=== PATIENT | male | born 1995 | race Caucasian/White ===

== ENCOUNTER 2024-03-16 06:09 | Emergency (ER) | payer OTHER, SELFPAY ==
--- NOTE | 2024-03-16 | ECG_ITS ---
Test Reason : DIZZINESS Blood Pressure : / mmHG Vent. Rate : 051 BPM Atrial Rate : 051 BPM P-R Int : 140 ms QRS Dur : 096 ms QT Int : 430 ms P-R-T Axes : 034 019 038 degrees QTc Int : 396 ms Sinus bradycardia with sinus arrhythmia Otherwise normal ECG No previous ECGs available Referred By: Generic ED Physician Electronically Signed By:RONAN CASTLE MD
[2024-03-16 06:14] VITALS: BP 163/90; PULSE 65; O2SAT 100
[2024-03-16 06:19] VITALS: BP 115/67; PULSE 51; RESP 18; TEMP 36.6; O2SAT 100; BMI 26.2
[2024-03-16 06:39] LABS: MANUAL DIFF FLAG NO
[2024-03-16 06:46] LABS: Basophils Absolute Auto 0.1 X10*3/uL (0.0-0.2); Basophils Percent Auto 1.1 % (0-2); Eosinophils Absolute Auto 0.2 X10*3/uL (0.0-0.4); Eosinophils Percent Auto 3.3 % (0-4); Hematocrit 37.8 % (42.0-52.0); Hemoglobin 13.4 g/dl (14.0-18.0); Imm Gran Abs Auto 0.04 X10*3/uL (0.00-0.03); Imm Gran Pct Auto 0.7 % (0.0-0.4); Lymphocytes Absolute Auto 2.2 X10*3/uL (1.2-4.9); Lymphocytes Percent Auto 35.3 % (20-40); Mean Corpuscular HGB Conc 35.4 g/dl (31.0-36.0); Mean Corpuscular Hemoglobin 31.5 pg (27.0-33.0); Mean Corpuscular Volume 88.7 fL (80.0-98.0); Mean Platelet Volume 11.7 fL (9.4-12.4); Monocytes Absolute Auto 0.4 X10*3/uL (0.1-1.2); Monocytes Percent Auto 6.5 % (2-11); Neutrophils Absolute Auto 3.3 x10*3/uL (2.0-8.3); Neutrophils Percent Auto 53.1 % (45-73); Platelet Count 246 X10*3/uL (160-400); Red Blood Count 4.26 X10*6/uL (4.60-5.80); Red Cell Distribution Width 12.9 % (11.0-16.0); White Blood Count 6.1 X10*3/uL (4.8-10.8)
[2024-03-16 06:55] LABS: Alanine Aminotransferase 30 U/L (0-40); Albumin Level 4.3 g/dL (3.5-5.0); Alkaline Phosphatase 69 U/L (39-117); Anion Gap 13 (12-20); Aspartate Amino Transferase 53 U/L (5-37); Bilirubin Direct 0.4 mg/dL (0.0-0.5); Bilirubin Total 1.3 mg/dL (0.0-1.0); Blood Urea Nitrogen 9 mg/dL (9-16); Calcium 9.7 mg/dL (8.4-10.2); Carbon Dioxide 21 mmol/L (22-29); Chloride 110 mmol/L (96-108); Estimated Glomerular Filt Rate > 60; Glucose Random 101 mg/dL (60-115); Lipase 14 U/L (8-78); Potassium 3.3 mmol/L (3.3-5.1); Sodium 141 mmol/L (135-145); Total Protein 7.4 g/dL (6.5-8.0)
[2024-03-16 08:02] VITALS: BP 105/61; PULSE 49; RESP 12; TEMP 36.3; O2SAT 100
[2024-03-16 08:10] LABS: Appearance Urine Clear; Color Urine Yellow; Glucose Urine UA Negative (Negative); Leukocyte Esterase Urine Negative (Negative); Nitrite Urine Negative (Negative); PH 7.5 (5.0-9.0); Specific Gravity - Urine 1.015 (1.005-1.025); Urine Blood Negative (Negative); Urine Ketones Negative (Negative); Urine Protein Negative (Neg-Trace)
--- NOTE | 2024-03-16 10:10 | ED.DIZZY ---
HPI - Dizziness General Chief Complaint: Dizziness Stated Complaint: DIZZY,LIGHTHEADED PER EMS Time Seen by Provider: 03/16/24 10:04 Source: patient and EMS Mode of arrival: EMS Limitations: no limitations History of Present Illness ED Provider: Dr. Gaytan HPI Narrative: Patient has felt weak intermittently for the past 2 days. He states he had palpitations and felt like he was going to pass out. Denies room spinning. Patient denies substance use or anxiety MD elicited complaint: lightheadedness Onset (ago): day(s) Timing: gradual onset Severity: mild Description: lightheadedness Related Data Allergies Allergy/AdvReac Type Severity Reaction Status Date / Time No Known Allergies Allergy Verified 03/16/24 06:21 Review of Systems Review of Systems: Yes all other systems are reviewed and are negative Neurologic: Denies Sensory deficit (Neuro) [facility] Social History Social History Advance Directives: No Advance Directives Information Provided: No Do you have a plan to hurt others: No Plan Physical Exam Vital Signs: Vital Signs: Last Vital Signs Temp 97.4 F 03/16/24 08:02 Pulse 49 L 03/16/24 08:02 Resp 12 03/16/24 08:02 BP 105/61 03/16/24 08:02 Pulse Ox 100 03/16/24 08:02 O2 Del Method Room Air 03/16/24 08:02 BMI result Body Mass Index 26.2 Const: General: healthy appearing Nutritional Appearance: average body habitus Orientation/consciousness: oriented to person and patient oriented x3 Limitations: no limitations HEENT: Head: Yes normal to inspection Ears: external ears normal General nose exam: Normal external nose present Mouth: Normal oral and palatal mucosa present and oropharynx normal Throat: Yes posterior oropharynx normal Eyes: General: appearance normal, both eyes and all related structures Neck: Other: supple Neck: Yes normal visual inspection Chest: Chest palpation & inspection: normal inspection of the chest Resp: Auscultation: clear to auscultation bilaterally Cardio: Jugular venous distension: no JVD Rate: regular rate Rhythm: regular rhythm Heart sounds: S1 normal heart sound present and S2 normal heart sound present GI: Inspection: Yes normal to inspection Palpation (GI): Soft to palpation, nontender and No hepatosplenomegaly present Auscultation: normal bowel sounds : General: Yes no CVA tenderness Back/Spine/Pelvis: Back: no CVA tenderness Skin: General skin exam: no rashes or lesions noted Neuro: General: oriented to person and patient oriented x3 Cranial nerves: Yes CN's II-XII intact bilaterally Motor exam (neuro): 5/5 motor strength present throughout Sensory Exam: No Sensory deficit (Neuro) Extrem: General: Yes normal to inspection Psych: Appearance: grossly normal Medical Decision Making Differential Diagnosis Differential Diagnoses: The differential diagnosis associated with the presentation includes (palpitations, arrhythmia, vertigo, anxiety were all considered) Admission/Observation Consideration of admission/observation: Escalation of care including admission/observation considered (upon arrival patient considered for admission) Lab Data MDM Lab Attestation statement: I reviewed the patient's lab results. 03/16/24 06:34 03/16/24 06:34 Labs: Lab Results 03/16/24 03/16/24 Range/Units 06:34 08:02 WBC 6.1 (4.8-10.8) X10*3/uL RBC 4.26 L (4.60-5.80) X10*6/uL Hgb 13.4 L (14.0-18.0) g/dl Hct 37.8 L (42.0-52.0) % MCV 88.7 (80.0-98.0) fL MCH 31.5 (27.0-33.0) pg MCHC 35.4 (31.0-36.0) g/dl RDW 12.9 (11.0-16.0) % Plt Count 246 (160-400) X10*3/uL MPV 11.7 (9.4-12.4) fL Immature Gran % (Auto) 0.7 H (0.0-0.4) % Neut % (Auto) 53.1 (45-73) % Lymph % (Auto) 35.3 (20-40) % [place] % (Auto) 6.5 (2-11) % Eos % (Auto) 3.3 (0-4) % Baso % (Auto) 1.1 (0-2) % Lymph # (Auto) 2.2 (1.2-4.9) X10*3/uL [place] # (Auto) 0.4 (0.1-1.2) X10*3/uL Eos # (Auto) 0.2 (0.0-0.4) X10*3/uL Baso # (Auto) 0.1 (0.0-0.2) X10*3/uL Abs Immat Gran (auto) 0.04 H (0.00-0.03) X10*3/uL Absolute Neuts (auto) 3.3 (2.0-8.3) x10*3/uL Absolute Nucleated RBC 0.000 (0.0-0.012) X10*3/uL Nucleated RBC % (auto) 0.0 (0.0-0.2) /100WBC Sodium 141 (135-145) mmol/L Potassium 3.3 (3.3-5.1) mmol/L Chloride 110 H (96-108) mmol/L Carbon Dioxide 21 L (22-29) mmol/L Anion Gap 13 (12-20) BUN 9 (9-16) mg/dL Creatinine 0.85 (0.5-1.4) mg/dL Estim Creat Clear Calc 139.0 Estimated GFR > 60 Random Glucose 101 (60-115) mg/dL Calcium 9.7 (8.4-10.2) mg/dL Total Bilirubin 1.3 H (0.0-1.0) mg/dL Direct Bilirubin 0.4 (0.0-0.5) mg/dL AST 53 H (5-37) U/L ALT 30 (0-40) U/L Alkaline Phosphatase 69 (39-117) U/L Total Protein 7.4 (6.5-8.0) g/dL Albumin 4.3 (3.5-5.0) g/dL Lipase 14 (8-78) U/L Urine Color Yellow Urine Appearance Clear Urine pH 7.5 (5.0-9.0) Ur Specific [place] 1.015 (1.005-1.025) Urine Protein Negative (Neg-Trace) mg/dL Urine Glucose (UA) Negative (Negative) mg/dL Urine Ketones Negative (Negative) mg/dL Urine Blood Negative (Negative) Urine Nitrite Negative (Negative) Ur Leukocyte Esterase Negative (Negative) Independent Interpretation I performed an independent interpretation of an: EKG (sinus 50, no st or twave changes) Independent Historian Clinical information obtained from an independent historian. History obtained from or confirmed by: EMS Tests considered The following testing was considered but not selected: Head CT considered but patient does not have vertigo and is non focal Social Determinants Patient?s care significantly limited by Social Determinants of Health including: Low income and Problems related to employment Discharge Plan Discharge Clinical Impression: Heart palpitations, Episodic lightheadedness Patient Disposition: Home, Self-Care Instructions: Heart Palpitations (ED), Lightheadedness (ED) Referrals: Physician,None [Primary Care Provider] - 5 days Print Language: Nepali
[2024-03-16 10:31] VITALS: BP 112/65; PULSE 47; RESP 15; TEMP 36.6; O2SAT 100
[2024-03-16 10:47] VITALS: BP 112/65; PULSE 47; RESP 15; TEMP 36.6; O2SAT 100
== END 2024-03-16 10:48 | disposition home or self-care (01) ==
PROVIDERS: Emergency Provider Emergency Medicine
DX: R00.2 Palpitations (principal); R42 Dizziness and giddiness
CPT/HCPCS: 36415; 80048; 80076; 81003; 83690; 85025; 93005; 99283; 99284

== ENCOUNTER → 2024-03-16 06:26 | Outpatient (BNV) | payer OTHER, SELFPAY | PROVIDERS: Emergency Provider Emergency Medicine; Visit Provider Internal Medicine Cardiovascular Disease | DX: R42 Dizziness and giddiness (principal) | CPT/HCPCS: 93010 ==

== ENCOUNTER 2024-04-02 10:31 | Outpatient (REF) | payer MEDICAID, SELFPAY ==
[2024-04-02 11:46] LABS: MANUAL DIFF FLAG NO
[2024-04-02 11:49] LABS: Basophils Absolute Auto 0.1 X10*3/uL (0.0-0.2); Eosinophils Absolute Auto 0.3 X10*3/uL (0.0-0.4); Eosinophils Percent Auto 4.2 % (0-4); Hematocrit 40.8 % (42.0-52.0); Imm Gran Abs Auto 0.05 X10*3/uL (0.00-0.03); Imm Gran Pct Auto 0.6 % (0.0-0.4); Lymphocytes Absolute Auto 3.5 X10*3/uL (1.2-4.9); Lymphocytes Percent Auto 44.5 % (20-40); Mean Corpuscular HGB Conc 34.3 g/dl (31.0-36.0); Mean Corpuscular Hemoglobin 30.9 pg (27.0-33.0); Mean Corpuscular Volume 90.1 fL (80.0-98.0); Mean Platelet Volume 12.5 fL (9.4-12.4); Monocytes Absolute Auto 0.5 X10*3/uL (0.1-1.2); Monocytes Percent Auto 6.6 % (2-11); Neutrophils Absolute Auto 3.4 x10*3/uL (2.0-8.3); Neutrophils Percent Auto 43.1 % (45-73); Platelet Count 272 X10*3/uL (160-400); Red Blood Count 4.53 X10*6/uL (4.60-5.80); White Blood Count 7.9 X10*3/uL (4.8-10.8)
[2024-04-02 12:29] LABS: Estimated Average Glucose 103 mg/dL; Hemoglobin A1c % 5.2 % (<6.0)
[2024-04-02 12:39] LABS: Anion Gap 12 (12-20); Blood Urea Nitrogen 8 mg/dL (9-16); Calcium 9.8 mg/dL (8.4-10.2); Carbon Dioxide 26 mmol/L (22-29); Chloride 107 mmol/L (96-108); Estimated Glomerular Filt Rate > 60; Glucose Random 80 mg/dL (60-115); Potassium 3.5 mmol/L (3.3-5.1); Sodium 141 mmol/L (135-145)
[2024-04-02 12:43] LABS: TSH reflex Free T4 3.27 uIU/mL (0.32-4.0); Vitamin D 25-OH Total 21.5 ng/mL (>30)
[2024-04-02 12:56] LABS: Folate 8.5 ng/mL (> or = 4.0); Vitamin B12 291 pg/mL (200-900)
== END 2024-04-02 10:32 | disposition home or self-care (01) ==
LOC: HO.HHCL 10:31
PROVIDERS: Visit Provider Internal Medicine
DX: R51.9 Headache, unspecified (principal); R53.83 Other fatigue
CPT/HCPCS: 36415; 80048; 82306; 82607; 82746; 83036; 84443; 85025

== ENCOUNTER 2024-04-03 11:12 | Outpatient (REF) | payer OTHER, SELFPAY | END 2024-04-03 11:13 | disposition home or self-care (01) | LOC: HO.HHCLNP 11:12 | PROVIDERS: Visit Provider Internal Medicine | DX: R10.10 Upper abdominal pain, unspecified (principal) | CPT/HCPCS: 87338 ==

== ENCOUNTER → 2025-05-13 22:21 | Outpatient (BNV) | payer MEDICAID, SELFPAY | PROVIDERS: Emergency Provider Emergency Medicine; Visit Provider Radiology Diagnostic Radiology | DX: R06.02 Shortness of breath (principal); R07.9 Chest pain, unspecified | CPT/HCPCS: 71046 ==

== ENCOUNTER 2025-05-13 23:00 | Emergency (ER) | payer MEDICAID, SELFPAY ==
--- NOTE | ~2025-05-13 | XR_ITS ---
CLINICAL HISTORY: sob, cp 2 view chest x-ray Comparison: None provided Findings: The lungs are clear. Heart size is normal. No acute fracture. IMPRESSION: 1. No acute findings. This document has been electronically signed by: Nasir Heller MD on 05/13/2025 23:59:04
[2025-05-13 23:04] VITALS: BP 145/77; PULSE 83; RESP 22; TEMP 36.7; O2SAT 96; BMI 35.4
[2025-05-13 23:49] LABS: MANUAL DIFF FLAG NO
[2025-05-13 23:52] LABS: Hematocrit 40.9 % (42.0-52.0); Hemoglobin 14.3 g/dl (14.0-18.0); Imm Gran Abs Auto 0.06 X10*3/uL (0.00-0.03); Imm Gran Pct Auto 0.6 % (0.0-0.4); Lymphocytes Absolute Auto 3.1 X10*3/uL (1.2-4.9); Mean Corpuscular HGB Conc 35.0 g/dl (31.0-36.0); Mean Corpuscular Hemoglobin 30.4 pg (27.0-33.0); Mean Corpuscular Volume 86.8 fL (80.0-98.0); NRBC Abs Auto 0.000 X10*3/uL (0.0-0.012); NRBC Pct Auto 0.0 /100WBC (0.0-0.2); Platelet Count 324 X10*3/uL (160-400); Red Blood Count 4.71 X10*6/uL (4.60-5.80); White Blood Count 10.7 X10*3/uL (4.8-10.8)
[2025-05-13 23:54] VITALS: PULSE 78; RESP 18; O2SAT 95
[2025-05-13] MEDS: Albuterol Sulfate 2.5 MG, Albuterol Sulfate (0.083%) 2.5 MG 5 MG INHALE (23:54)
[2025-05-14 00:08] LABS: Alanine Aminotransferase 31 U/L (0-40); Albumin Level 4.3 g/dL (3.5-5.0); Alkaline Phosphatase 105 U/L (39-117); Anion Gap 18 (12-20); Aspartate Amino Transferase 27 U/L (5-37); Blood Urea Nitrogen 12 mg/dL (9-16); Calcium 8.7 mg/dL (8.4-10.2); Carbon Dioxide 21 mmol/L (22-29); Chloride 106 mmol/L (96-108); Creatinine Clr Calc Pharmacy 166.9; Estimated Glomerular Filt Rate > 60; Potassium 3.5 mmol/L (3.3-5.1); Sodium 141 mmol/L (135-145); Total Protein 7.8 g/dL (6.5-8.0)
[2025-05-14 00:28] LABS: Resp Syncy Virus RNA Qual PCR NEGATIVE (Negative); SARS COV2 PCR INHOUSE NEGATIVE (Negative)
--- NOTE | 2025-05-14 01:14 | ED_ITS ---
HPI - SOB/Dyspnea General Chief Complaint: Dyspnea Stated Complaint: Asthma, severe SOB Time Seen by Provider: 05/13/25 23:40 Source: patient Mode of arrival: ambulatory Limitations: no limitations History of Present Illness ED Provider: Dr. Mya Seals HPI Narrative: Patient comes to the emergency room complaining of shortness of breath. Patient known to have asthma. Patient states that he has been using his inhaler of albuterol without any significant relief, patient reporting dry cough for the past 2 weeks. Denies any chest pain. Patient states that he used his inhaler about 8 times today. Related Data Previous Rx's ?Medication ?Instructions ?Recorded albuterol sulfate 90 mcg/actuation 2 puff inhalation Q 4-6H PRN 05/14/25 aerosol inhaler (Ventolin HFA) shortness of breath or wheezing #8.5 grams prednisone 50 mg tablet 50 mg PO DAILY #4 tabs 05/14 Allergies Allergy/AdvReac Type Severity Reaction Status Date / Time No Known Allergies Allergy Verified 05/13/25 23:04 Review of Systems 2 Review of Systems: Constitutional : No Weight loss, No Fever, No Chills, No Night Sweats, No Fatigue, No Malaise ENT/Mouth : No Hearing loss, No Ear Pain, No Nasal Congestion, No Sinus Pain, No Hoarseness, No sore throat, No Rhinorrhea, No Swallowing Difficulty Eyes: No Eye Pain, No Swelling, No Redness, No Foreign Body, No Discharge, No Vision Changes Cardiovascular : No Chest Pain, no orthopnea no palpitations or lower extremity edema Respiratory : Complaining of 2 weeks of dry cough, wheezing, shortness of breath Gastrointestinal : No Nausea, No Vomiting, No Diarrhea, No Constipation, No abdominal Pain, No Hematochezia, No Melena Genitourinary : no irregular bleeding, No Dysuria, No Urinary Frequency, No Hematuria, No Urinary Incontinence, No Urgency, No Flank Pain, No Urinary Flow Changes, No Hesitancy Musculoskeletal : No joint pain, No Myalgias, No Joint Swelling Skin : No Skin Lesions, No rash Neuro : No Weakness, No Numbness, No Paresthesias, No Loss of Consciousness, No Dizziness, No Headache Psych : No Anxiety/Panic, No Depression, No SI/HI/AH/VH, No Social Issues, Heme/Lymph: No Bruising, No Bleeding,No Lymphadenopathy Endocrine : No Polyuria, No Polydipsia, No Temperature Intolerance [facility] Social History Social History Smoked in Last 30 Days: No Substance Use Type: Marijuana Substance Use Frequency: Occasionally Advance Directives: No Advance Directives Information Provided: Yes Physical Exam 2 Exam: Exam: Appearance: Alert. Oriented X3. No acute distress. Eyes: Pupils equal, round and reactive to light. ENT: Pharynx normal. Neck: Normal inspection. Neck supple. No lymph nodes noted. No crepitus CVS: Normal heart rate and rhythm. Pulses normal. Normal S1 and S2 Respiratory: No respiratory distress. Very mild occasional bilateral wheezing, good air movement Abdomen: Soft and nontender. No rigidity. No distention. Skin: Skin warm and dry. Normal skin color. Normal skin turgor. Extremities: No lower extremity edema. No Lacerations. No Rash Neuro: Oriented X 3. No motor deficit. No sensory deficit. Moving all extremities. No slurred speech. CN 2 through 12 grossly intact Psych: calm, cooperative, normal affect Vital Signs: Vital Signs: Last Vital Signs Temp 98.0 F 05/13/25 23:04 Pulse 78 05/13/25 23:54 Resp 18 05/13/25 23:54 BP 145/77 H 05/13/25 23:04 Pulse Ox 96 05/13/25 23:04 O2 Del Method Room Air 05/13/25 23:04 BMI result Body Mass Index 35.4 Course Course Course Narrative: On arrival, patient's oxygen saturation 96% on room air, barely wheezing, seems that patient has medication is starting to work now. Patient received a dose of Solu-Medrol, magnesium in 1 DuoNeb Medications Administered Discontinued Medications Generic Name Dose Route Start Last Admin Trade Name Freq PRN Reason Stop Dose Admin Albuterol Sulfate 2.5 mg/ 5 mg 05/13/25 23:48 05/13/25 23:54 Albuterol Sulfate 2.5 mg INHALE 05/13/25 23:49 5 mg ONCE ONE Administration Magnesium Sulfate/Dextrose 1 gm in 100 mls @ 100 mls/hr 05/13/25 23:46 05/14/25 00:15 Magnesium Sulfate/D5w IV 05/14/25 00:45 100 mls/hr ONCE ONE Administration Methylprednisolone Sodium Succinate 125 mg 05/13/25 23:46 05/14/25 00:15 Methylprednisolone Sod Succ 125 Mg/2 Ml Vial IVPUSH 05/13/25 23:47 125 mg ONCE ONE Administration Medical Decision Making Medical Decision Making MDM Narrative: After the above-mentioned medication, patient has started to feel much better. No longer short of breath coughing or wheezing. Oxygen saturation 96%, no oxygen desaturation, walking 92% without wheezing or shortness of breath. Patient's medications were sent to his pharmacy. Patient states that he has enough albuterol inhalers at home Differential Diagnosis Differential Diagnoses: The differential diagnosis associated with the presentation includes (Asthma exacerbation, viral illness) Admission/Observation Consideration of admission/observation: Escalation of care including admission/observation considered (Given patient's initial presentation and symptoms, observation was considered) Lab Data [facility] Lab Attestation statement: I reviewed the patient's lab results. 05/13/25 23:29 05/13/25 23:29 Labs: Lab Results 05/13/25 Range/Units 23:29 WBC 10.7 (4.8-10.8) X10*3/uL RBC 4.71 (4.60-5.80) X10*6/uL Hgb 14.3 (14.0-18.0) g/dl Hct 40.9 L (42.0-52.0) % MCV 86.8 (80.0-98.0) fL MCH 30.4 (27.0-33.0) pg MCHC 35.0 (31.0-36.0) g/dl RDW 13.2 (11.0-16.0) % Plt Count 324 (160-400) X10*3/uL MPV 10.9 (9.4-12.4) fL Immature Gran % (Auto) 0.6 H (0.0-0.4) % Neut % (Auto) 51.3 (45-73) % Lymph % (Auto) 29.3 (20-40) % [place] % (Auto) 7.3 (2-11) % Eos % (Auto) 10.0 H (0-4) % Baso % (Auto) 1.5 (0-2) % Lymph # (Auto) 3.1 (1.2-4.9) X10*3/uL [place] # (Auto) 0.8 (0.1-1.2) X10*3/uL Eos # (Auto) 1.1 H (0.0-0.4) X10*3/uL Baso # (Auto) 0.2 (0.0-0.2) X10*3/uL Abs Immat Gran (auto) 0.06 H (0.00-0.03) X10*3/uL Absolute Neuts (auto) 5.5 (2.0-8.3) x10*3/uL Absolute Nucleated RBC 0.000 (0.0-0.012) X10*3/uL Nucleated RBC % (auto) 0.0 (0.0-0.2) /100WBC Sodium 141 (135-145) mmol/L Potassium 3.5 (3.3-5.1) mmol/L Chloride 106 (96-108) mmol/L Carbon Dioxide 21 L (22-29) mmol/L Anion Gap 18 (12-20) BUN 12 (9-16) mg/dL Creatinine 0.85 (0.5-1.4) mg/dL Estim Creat Clear Calc 166.9 Estimated GFR > 60 Random Glucose 92 (60-115) mg/dL Calcium 8.7 D (8.4-10.2) mg/dL Total Bilirubin 0.3 (0.0-1.0) mg/dL AST 27 (5-37) U/L ALT 31 (0-40) U/L Alkaline Phosphatase 105 (39-117) U/L Total Protein 7.8 (6.5-8.0) g/dL Albumin 4.3 (3.5-5.0) g/dL Influenza Type A (PCR) NEGATIVE (Negative) Influenza Type B (PCR) NEGATIVE (Negative) RSV RNA Qual (PCR) NEGATIVE (Negative) SARS-CoV-2 RNA (RT-PCR) NEGATIVE (Negative) Independent Interpretation I performed an independent interpretation of an: Plain X-Ray Radiology Impression Discussion of test interpretation with radiology: I have reviewed the radiologist's reading. Radiologist Impression: The lungs are clear. Heart size is normal. No acute fracture. IMPRESSION: 1. No acute findings. Critical Care Time Critical Care Time Critical Care Time: Yes Total Critical Care Time: 45 Attestation: I have personally provided critical care time. Time includes review of lab data, radiology results, discussion with consultants, and monitoring for potential decompensation. Intervention performed as documented. Discharge Plan Discharge Clinical Impression: Asthma with exacerbation Patient Disposition: Home, Self-Care Instructions: Asthma (ED) Additional Instructions: Please follow-up with your primary care physician tomorrow. If you have any worsening or new symptoms, please return to the emergency room or call 911 Prescriptions: New albuterol sulfate [Ventolin HFA] 90 mcg/actuation HFA aerosol inhaler 2 puff inhalation Q4-6H PRN (Reason: shortness of breath or wheezing) Qty: 8.5 0RF prednisone 50 mg tablet 50 mg PO DAILY Qty: 4 0RF Stand Alone Forms: Work/School Release Print Language: Gambian
--- NOTE | 2025-05-14 01:40 | MHC.EDTECH ---
@01:25 the patient was walked with for a trail Spo2. he stated at 96% on RM air at rest, the patient then walked down the [address]- at the end of the [address]ong [address] the patient was stating at 92% with no C/O of light headed, dizziness or SOB. Once back in the room the patient was resting on the bed stating at 97% on RM air. No C/O SOB, dizziness or light headed.
[2025-05-14 01:58] VITALS: BP 144/77; PULSE 78; RESP 18; TEMP 36.6; O2SAT 96
== END 2025-05-14 01:59 | disposition home or self-care (01) ==
PROVIDERS: Emergency Provider Emergency Medicine
DX: J45.901 Unspecified asthma with (acute) exacerbation (principal); R06.00 Dyspnea, unspecified; R06.02 Shortness of breath
CPT/HCPCS: 36415; 71046; 80053; 85025; 87637; 96365; 96375; 99284; 99291; J2919; J3475

== ENCOUNTER 2025-05-28 15:58 | Emergency (ER) | payer MEDICAID, SELFPAY ==
--- NOTE | ~2025-05-28 | XR_ITS ---
EXAMINATION: XR CHEST CLINICAL INFORMATION: cp Comparison: Chest radiograph on May 13, 2025 FINDINGS: Lungs: Lungs are clear. No focal consolidation or evidence of edema. Pleura: No pleural effusion or pneumothorax. Heart/Mediastinum: Normal heart and mediastinum. Bones/Soft Tissues: Unremarkable XR/XR chest 2V IMPRESSION: Normal chest. Electronically signed by: Tatiana Gordon MD 05/28/2025 04:35 PM EDT
--- NOTE | 2025-05-28 16:00 | ECG_ITS ---
Test Reason : CHEST PAIN Blood Pressure : */* mmHG Vent. Rate : 98 BPM Atrial Rate : 98 BPM P-R Int : 130 ms QRS Dur : 86 ms QT Int : 342 ms P-R-T Axes : 50 10 49 degrees QTcB Int : 436 ms Normal sinus rhythm Normal ECG When compared with ECG of 16-Mar-2024 06:26, Vent. rate has increased by 47 bpm Referred By: Montse Humphrey Electronically Signed By: Don Smith
[2025-05-28 16:07] VITALS: BP 106/74; PULSE 100; RESP 22; TEMP 36.8; O2SAT 94; BMI 33.8
--- NOTE | 2025-05-28 16:07 | ED.CHESTPAIN ---
HPI - Chest Pain General Chief Complaint: Upper Respiratory Symptoms Stated Complaint: SOB, chest tightness Time Seen by Provider: 05/28/25 17:19 Source: patient Mode of arrival: ambulatory Limitations: no limitations History of Present Illness ED Provider: Mnotse Humphrey APRN HPI narrative: 30 yo male with no known medical history here with complaints chest congestion, chest pain with breathing since yesterday with coughing. No fevers, chills, leg swelling, leg pain, vomiting, diarrhea. No recent travel. No history or family history of blood clots. Patient reports history of bronchitis in the past requiring albuterol but no formal diagnosis of asthma. 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 Patient reports symptoms are worse after he is working Related Data Previous Rx's ?Medication ?Instructions ?Recorded albuterol sulfate 90 mcg/actuation 2 puff inhalation Q4-6H PRN 05/14/25 aerosol inhaler (Ventolin HFA) shortness of breath or wheezing #8.5 grams prednisone 50 mg tablet 50 mg PO DAILY #4 tabs 05/14/25 albuterol sulfate 2.5 mg/3 mL 2.5 mg (3 mL) inhalation Q6H PRN 05/28/25 (0.083 %) solution for nebulization shortness of breath or wheezing #75 mL albuterol sulfate 90 mcg/actuation 2 inh inhalation Q4H PRN shortness 05/28/25 breath activated powder inhaler of breath or wheezing #1 ea azithromycin 250 mg tablet 250 mg PO DAILY 4 days #4 tabs 05/28/25 prednisone 20 mg tablet 40 mg (2 x 20 mg) PO DAILY #8 tabs 05/28/25 Allergies Allergy/AdvReac Type Severity Reaction Status Date / Time No Known Allergies Allergy Verified 05/28/25 16:09 Review of Systems Review of Systems: Yes all other systems are reviewed and are negative Constitutional: Constitutional: Reports no additional constitutional complaints, Denies body ache(s), Denies chills, Denies fever(s), Denies headache(s) and Denies weakness Eyes: Eyes: Reports no additional eye complaints and Denies change in vision ENT: Reports system reviewed and no additional complaints, except as documented, Denies dizziness, Denies headache(s), Denies nasal congestion, Denies nasal discharge and Denies neck pain Cardiovascular: Cardiovascular: Reports no additional cardiovascular complaints, Reports chest pain, Denies leg edema and Reports dyspnea Respiratory: Respiratory: Reports no additional respiratory complaints, Reports cough and Reports dyspnea Gastrointestinal: Gastrointestinal: Reports no additional gastrointestinal complaints, Denies abdominal pain, Denies diarrhea, Denies nausea and Denies vomiting Genitourinary: Genitourinary: Denies urinary incontinence Musculoskeletal: Musculoskeletal: Reports no additional musculoskeletal complaints, Denies back pain, Denies arthralgias, Denies joint swelling, Denies neck pain, Denies numbness and Denies tingling Integumentary/Breasts: Skin/Breast: Reports system reviewed and no additional complaints, except as docu and Denies rash Neurologic: Reports system reviewed and no additional complaints, except as documented, Denies Abnormal speech present, Denies dizziness, Denies headache(s), Denies numbness, Denies tingling and Denies weakness PMFSH Past Medical History Attestation statement: The following information was validated with the patient. Source: old records reviewed and nursing notes reviewed Social History Social History Substance Use Type: Marijuana Advance Directives: No Advance Directives Information Provided: No Do you have a plan to hurt others: No Plan Physical Exam Vital Signs: Vital Signs: Last Vital Signs Temp 98 F 05/28/25 17:46 Pulse 80 05/28/25 17:46 Resp 20 05/28/25 17:46 BP 110/86 05/28/25 17:46 Pulse Ox 95 05/28/25 17:46 O2 Del Method Room Air 05/28/25 17:46 BMI result Body Mass Index 33.8 Const: General: cooperative, healthy appearing, comfortable and no acute distress Orientation/consciousness: patient oriented x3 Limitations: no limitations HEENT: Head: Yes normal to inspection Ears: hearing grossly normal bilaterally and TM's normal bilaterally General nose exam: Normal external nose present Face and sinus: Yes normal facial exam Mouth: Normal oral and palatal mucosa present Throat: Yes posterior oropharynx normal and Yes tonsils normal Eyes: General: appearance normal, both eyes and all related structures Pupils: Equal, round and reactive pupils present Neck: Neck: Yes normal visual inspection, Yes full ROM, Yes no lymphadenopathy and Yes no meningeal signs Chest: Chest palpation & inspection: normal inspection of the chest Resp: Other: Mild expiratory wheezing Effort & Inspection: normal respiratory effort Cardio: Rate: regular rate Rhythm: regular rhythm Peripheral pulses: Peripheral pulses 2+ throughout GI: Inspection: Yes normal to inspection Palpation (GI): Soft to palpation and nontender Auscultation: normal bowel sounds Back/Spine/Pelvis: Thoracic/Lumbar Spine: thoracic and lumbar spine normal to inspection Skin: General skin exam: no rashes or lesions noted Neuro: General: patient oriented x3, no meningeal signs, no focal motor deficits and normal sensation to monofilament Cranial nerves: Yes Equal, round and reactive pupils present Cognition (Neuro): normal cognition Speech: No Abnormal speech present Gait exam (Neuro): Normal gait present Motor exam (neuro): 5/5 motor strength present throughout Extrem: General: Yes normal to inspection, No calf tenderness and No pedal edema Course Course Course Narrative: 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 Deferred additional HPI, ROS, PE to primary provider. 30 yo male with no known medical history here with complaints chest congestion, chest pain with breathing since yesterday. Will obtain labs, EKG, CXR, viral testing. Medications Administered Discontinued Medications Generic Name Dose Route Start Last Admin Trade Name Freq PRN Reason Stop Dose Admin Albuterol Sulfate 2 puff 05/28/25 16:24 05/28/25 16:27 Albuterol Sulfate 90 Mcg 8 Gm Inhaler INHALE 05/28/25 16:25 Not Given ONCE ONE Albuterol Sulfate 8 puff 05/28/25 16:29 05/28/25 16:31 Albuterol Sulfate 90 Mcg 8 Gm Inhaler INHALE 05/28/25 16:30 8 puff ONCE ONE Administration Azithromycin 500 mg 05/28/25 17:23 05/28/25 17:40 Azithromycin 500 Mg Tablet PO 05/28/25 17:24 500 mg ONCE ONE Administration Prednisone 60 mg 05/28/25 17:23 05/28/25 17:40 Prednisone 20 Mg Tablet PO 05/28/25 17:24 60 mg ONCE ONE Administration Medical Decision Making Medical Decision Making MDM Narrative: 30 yo male with no known medical history here with complaints chest congestion, chest pain with breathing since yesterday with coughing. No fevers, chills, leg swelling, leg pain, vomiting, diarrhea. No recent travel. No history or family history of blood clots. Patient reports history of bronchitis in the past requiring albuterol but no formal diagnosis of asthma. 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 He does have mild tachypnea. He does have inspiratory and expiratory wheezing He was seen by respiratory and received 4 puffs of albuterol MDI. Will obtain viral testing, chest x-ray. Will review EKG from triage. Likely bronchitis. Patient likely has underlying RAD Differential Diagnosis Differential Diagnoses: The differential diagnosis associated with the presentation includes Bronchitis Low suspicion for PE with perc 0, low suspicion for pneumonia, low suspicion for ACS Admission/Observation Consideration of admission/observation: Escalation of care including admission/observation considered Bronchitis with no requirement for supplemental oxygen. Patient can be discharged home with oral medications and strict return precautions Lab Data MDM Lab Attestation statement: I reviewed the patient's lab results. Labs: Lab Results 05/28/25 Range/Units 16:23 Influenza Type A (PCR) NEGATIVE (Negative) Influenza Type B (PCR) NEGATIVE (Negative) RSV RNA Qual (PCR) NEGATIVE (Negative) SARS-CoV-2 RNA (RT-PCR) NEGATIVE (Negative) Independent Interpretation I performed an independent interpretation of an: Plain X-Ray Interpretation: I independently viewed the x-ray and agree with the radiology report I independently viewed the EKG which shows normal sinus rhythm with a rate of 98, normal KS, normal QRS, normal QT Radiology Impression Discussion of test interpretation with radiology: I have reviewed the radiologist's reading. Radiologist Impression: [address] [id number] XRay Report Signed Patient: Ho Parks MR#: [id number] : 1995 Acct:[id number] Age/Sex: 30 / M ADM Date: 05/28/25 Loc: .ED Attending Dr: Ordering Physician: Montse Humphrey NP Date of Service: 05/28/25 Procedure(s): XR chest 2V Accession Number(s): [id number] cc: Montse Humphrey NP; Physician,None ~ EXAMINATION: XR CHEST CLINICAL INFORMATION: cp Comparison: Chest radiograph on May 13, 2025 FINDINGS: Lungs: Lungs are clear. No focal consolidation or evidence of edema. Pleura: No pleural effusion or pneumothorax. Heart/Mediastinum: Normal heart and mediastinum. Bones/Soft Tissues: Unremarkable XR/XR chest 2V IMPRESSION: Normal chest. Electronically signed by: Tatiana Gordon MD 05/28/2025 04:35 PM EDT RP Prescription Management I considered prescription management with: Antibiotic Discharge Plan Discharge Clinical Impression: Bronchitis Patient Disposition: Home, Self-Care Instructions: Acute Bronchitis (ED) Additional Instructions: Start your antibiotic and prednisone tomorrow Return to the emergency room for any worsening symptoms Establish a primary care doctor Prescriptions: New albuterol sulfate 90 mcg/actuation aerosol powdr breath activated 2 inh inhalation Q4H PRN (Reason: shortness of breath or wheezing) Qty: 1 0RF albuterol sulfate 2.5 mg /3 mL (0.083 %) solution for nebulization 2.5 mg inhalation Q6H PRN (Reason: shortness of breath or wheezing) Qty: 75 0RF azithromycin 250 mg tablet 250 mg PO DAILY 4 Days Qty: 4 0RF Rx Instructions: start on day 2 of therapy prednisone 20 mg tablet 40 mg PO DAILY Qty: 8 0RF No Action albuterol sulfate [Ventolin HFA] 90 mcg/actuation HFA aerosol inhaler 2 puff inhalation Q4-6H PRN (Reason: shortness of breath or wheezing) Qty: 8.5 0RF prednisone 50 mg tablet 50 mg PO DAILY Qty: 4 0RF Referrals: ED Physician,Generic [Physician, Emergency Medicine] Stand Alone Forms: Work/School Release Interventions: ED Discharge Assessment Last Done: 05/28/25 17:46 Discharge Date/Time: 05/28/25 17:48 Print Language: Kiswahili
[2025-05-28 16:31] VITALS: PULSE 101; RESP 22; O2SAT 93
[2025-05-28] MEDS: Albuterol Sulfate 90 MCG 8 GM INHALER 8 PUFF INHALE (16:31)
[2025-05-28 17:08] LABS: Resp Syncy Virus RNA Qual PCR NEGATIVE (Negative); SARS COV2 PCR INHOUSE NEGATIVE (Negative)
[2025-05-28 17:46] VITALS: BP 110/86; PULSE 80; RESP 20; TEMP 36.6; O2SAT 95
== END 2025-05-28 17:48 | disposition home or self-care (01) ==
PROVIDERS: Nurse Practitioner Family; Emergency Provider Emergency Medicine
DX: J40 Bronchitis, not specified as acute or chronic (principal); R07.89 Other chest pain; R06.02 Shortness of breath; Z03.818 Encounter for observation for suspected exposure to other biological agents ruled out
CPT/HCPCS: 71046; 87637; 93005; 94640; 99284

== ENCOUNTER → 2025-05-28 16:00 | Outpatient (BNV) | payer MEDICAID, SELFPAY | PROVIDERS: Emergency Provider Emergency Medicine; Visit Provider Internal Medicine Cardiovascular Disease | DX: R07.89 Other chest pain (principal) | CPT/HCPCS: 93010 ==

== ENCOUNTER → 2025-05-28 16:08 | Outpatient (BNV) | payer MEDICAID, SELFPAY | PROVIDERS: Visit Provider Radiology Body Imaging | DX: R07.9 Chest pain, unspecified (principal) | CPT/HCPCS: 71046 ==

== ENCOUNTER 2025-07-26 12:18 | Emergency (ER) | payer MEDICAID, SELFPAY ==
[2025-07-26 12:19] VITALS: BP 129/81; PULSE 75; RESP 16; TEMP 36.4; O2SAT 97; BMI 34.7
--- NOTE | 2025-07-26 12:19 | ED_ITS ---
HPI - General Adult General Chief complaint: Headache Stated complaint: neck pressure to head, low vision, acid reflex Time Seen by Provider: 07/26/25 16:02 Source: patient, RN notes reviewed and old records reviewed Mode of arrival: ambulatory Limitations: no limitations History of Present Illness ED Provider: Theresa HPI narrative: 30-year-old male with past medical history significant for GERD presents for evaluation abdominal pain with headaches. Patient reports for the last week and a half he has had upper abdominal pain that he describes as burning pain His pain is worse after eating. He reports when he gets the abdominal pain he has posterior headache as well and some tingling in his face pain He has some associated diarrhea that is described as nonbloody and postprandial. Denies any black or bloody stool. He denies any recent travel or antibiotic use He is status post cholecystectomy He reports does not use NSAIDs and does not drink alcohol He has had similar episode in the past that improved with a PPI but he stopped taking this a long time ago No other complaints or concerns at this time Related Data Previous Rx's ?Medication ?Instructions ?Recorded albuterol sulfate 90 mcg/actuation 2 puff inhalation Q 4-6H PRN 05/14/25 aerosol inhaler (Ventolin HFA) shortness of breath or wheezing #8.5 grams prednisone 50 mg tablet 50 mg PO DAILY #4 tabs 05/14 albuterol sulfate 2.5 mg/3 mL 2.5 mg (3 mL) inhalation Q6H PRN 05/28/25 (0.083 %) solution for nebulization shortness of breat h or wheezing #75 mL albuterol sulfate 90 mcg/actuation 2 inh inhalation Q4 H PRN shortness 05/28/25 breath activated powder inhaler of breath or wheezing #1 ea azithromycin 250 mg tablet 250 mg PO DAILY 4 days #4 t abs 05/28/25 prednisone 20 mg tablet 40 mg (2 x 20 mg) PO DAILY # 8 tabs 05/28/25 omeprazole 20 mg delayed 20 mg PO DAILY 14 days #14 t abs 07/26/25 release,disintegrating tablet Allergies Allergy/AdvReac Type Severity Reaction Status Date / Time No Known Allergies Allergy Verified 07/26/25 12:21 Review of Systems 2 Constitutional: Constitutional: Denies body ache(s), Denies fatigue, Denies fever(s), Denies frequent falls and Reports headache(s) Eyes: Eyes: Denies blurry vision ENT: Denies vertigo, Denies dizziness and Reports headache(s) Cardiovascular: Cardiovascular: Denies chest pain Respiratory: Respiratory: Denies cough Gastrointestinal: Gastrointestinal: Reports abdominal pain, Denies melena, Denies hematochezia, Denies constipation, Reports diarrhea, Reports loose stools, Denies nausea and Denies vomiting Musculoskeletal: Musculoskeletal: Reports back pain Integumentary/Breasts: Skin/Breast: Denies rash Neurologic: Denies vertigo, Denies dizziness, Denies frequent falls and Reports headache(s) Psychiatric: Psychiatric: Reports anxiety Endocrine: Endocrine: Denies fatigue PMFSH Social History Social History Substance Use Type: Marijuana Advance Directives: No Advance Directives Information Provided: No Do you have a plan to hurt others: No Plan Physical Exam ED Vital Signs: Vital Signs - 24 hr 07/26/25 12:19 Temperature 97.6 F Pulse Rate 75 Respiratory Rate 16 Blood Pressure 129/81 Pulse Oximetry 97 Oxygen Delivery Method Room Air BMI result Body Mass Index 34.7 Const General: healthy appearing, comfortable, no acute distress, alert and awake Nutritional Appearance: well nourished Orientation/consciousness: patient oriented x3 HENMT Head: Yes normocephalic and Yes atraumatic Eyes Eyelids: Yes eyelids normal Conjunctivae: conjunctivae normal Sclerae: sclerae normal Corneas: corneas normal Pupils: Equal, round and reactive pupils present EOM: EOMs intact bilaterally Neck Neck: Yes full ROM Resp Effort & Inspection: normal respiratory effort, able to speak in complete sentences and not labored Cardio Rate: regular rate Rhythm: regular rhythm GI Inspection: No distended Palpation (GI): Soft to palpation, not firm, nontender, no guarding and not rigid Skin General skin exam: elasticity normal Neuro General: patient oriented x3 Cranial nerves: Yes CN's II-XII intact bilaterally, Yes Equal, round and reactive pupils present and Yes Bilaterally intact EOM present Cognition (Neuro): normal cognition Extrem Other: Moving all extremities well without any obvious deformities Course Course Course Narrative: Rapid medical examination performed in triage by Bree Mallory PA-C. Patient is a 30 year old assigned male at presenting to the emergency department with head pressure and epigastric pain with eating. Detailed physical exam and review of systems are deferred to the terminal system operator. Labs ordered. Patient placed back in the waiting room pending room availability and results. Medical Decision Making Medical Decision Making [facility] Narrative: 30-year-old male past medical history significant for GERD and status post cholecystectomy presents for evaluation of upper abdominal pain that has after eating. Denies alcohol abuse or NSAID abuse. His symptoms described as burning in nature knee has a history of GERD/heartburn. His symptoms are most consistent with acid reflux/GERD. We will treat with a GI cocktail. I reviewed the patient's labs, he has no leukocytosis, no significant anemia. He has no electrolyte or chemistry abnormalities warranting intervention. LFTs are within normal limits I did not on a lipase to evaluate for acute pancreatitis. He does not have any risk factors for this in a feel this is less likely. I ordered EKG due to his reported chest pain but again this is most similar to a GERD presentation in a feel that ACS is less likely in a healthy 30-year-old. The patient with a complete benefit from a referral to GI for upper endoscopy and/or colonoscopy. He is having nonbloody diarrhea, I am not concerned for obstruction and less likely infectious process as he has no fever or white count. Differential Diagnosis Differential Diagnoses: The differential diagnosis associated with the presentation includes GERD Gastroenteritis Peptic ulcer disease Pancreatitis Constipation Bowel obstruction Enteritis Lab Data MDM Lab Attestation statement: I reviewed the patient's lab results. As above 07/26/25 12:26 07/26/25 12:26 Labs: Lab Results 07/26/25 07/26/25 Range/Units 12:26 15:12 WBC 8.0 (4.8-10.8) X10*3/uL RBC 4.97 (4.60-5.80) X10*6/uL Hgb 14.9 (14.0-18.0) g/dl Hct 43.8 (42.0-52.0) % MCV 88.1 (80.0-98.0) fL MCH 30.0 (27.0-33.0) pg MCHC 34.0 (31.0-36.0) g/dl RDW 12.9 (11.0-16.0) % Plt Count 296 (160-400) X10*3/uL MPV 10.6 (9.4-12.4) fL Immature Gran % (Auto) 0.4 (0.0-0.4) % Neut % (Auto) 50.9 (45-73) % Lymph % (Auto) 33.5 (20-40) % [place] % (Auto) 7.1 (2-11) % Eos % (Auto) 7.1 H (0-4) % Baso % (Auto) 1.0 (0-2) % Lymph # (Auto) 2.7 (1.2-4.9) X10*3/uL Dickson # (Auto) 0.6 (0.1-1.2) X10*3/uL Eos # (Auto) 0.6 H (0.0-0.4) X10*3/uL Baso # (Auto) 0.1 (0.0-0.2) X10*3/uL Abs Immat Gran (auto) 0.03 (0.00-0.03) X10*3/uL Absolute Neuts (auto) 4.1 (2.0-8.3) x10*3/uL Absolute Nucleated RBC 0.000 (0.0-0.012) X10*3/uL Nucleated RBC % (auto) 0.0 (0.0-0.2) /100WBC Sodium 143 (135-145) mmol/L Potassium 3.7 (3.3-5.1) mmol/L Chloride 110 H (96-108) mmol/L Carbon Dioxide 25 (22-29) mmol/L Anion Gap 12 (12-20) BUN 9 (9-16) mg/dL Creatinine 0.80 (0.5-1.4) mg/dL Estim Creat Clear Calc 175.7 Estimated GFR > 60 Random Glucose 95 (60-115) mg/dL Calcium 9.1 (8.4-10.2) mg/dL Magnesium 1.8 (1.6-2.6) mg/dL Total Bilirubin 0.8 (0.0-1.0) mg/dL AST 27 (5-37) U/L ALT 36 (0-40) U/L Alkaline Phosphatase 81 (39-117) U/L Total Protein 7.4 (6.5-8.0) g/dL Albumin 4.6 (3.5-5.0) g/dL Urine Color Yellow Urine Appearance Clear Urine pH 6.0 (5.0-9.0) Ur Specific [place] 1.025 (1.005-1.025) Urine Protein Negative (Neg-Trace) mg/dL Urine Glucose (UA) Negative (Negative) mg/dL Urine Ketones Negative (Negative) mg/dL Urine Blood Negative (Negative) Urine Nitrite Negative (Negative) Ur Leukocyte Esterase Negative (Negative) Independent Interpretation I performed an independent interpretation of an: EKG (Sinus rhythm without ST changes) Tests considered The following testing was considered but not selected: Consider CT scan of the abdomen pelvis but felt that there was a low threshold for infectious or obstructive pathology. There has a reassuring exam and less likely surgical abdomen. Discharge Plan Discharge Clinical Impression: Abdominal pain Patient Disposition: Home, Self-Care Instructions: GERD (Gastroesophageal Reflux Disease) (ED) Additional Instructions: Your workup in the ER today was reassuring. I recommend that you take omeprazole daily for the next 2 weeks. Avoid spicy, greasy foods pain Follow up with GI as you may benefit from an upper endoscopy and/or colonoscopy Return for new or worsening symptoms Prescriptions: New omeprazole 20 mg tablet,disintegrat, delay rel 20 mg PO DAILY 14 Days Qty: 14 0RF No Action albuterol sulfate [Ventolin HFA] 90 mcg/actuation HFA aerosol inhaler 2 puff inhalation Q4-6H PRN (Reason: shortness of breath or wheezing) Qty: 8.5 0RF prednisone 50 mg tablet 50 mg PO DAILY Qty: 4 0RF albuterol sulfate 90 mcg/actuation aerosol powdr breath activated 2 inh inhalation Q4H PRN (Reason: shortness of breath or wheezing) Qty: 1 0RF albuterol sulfate 2.5 mg /3 mL (0.083 %) solution for nebulization 2.5 mg inhalation Q6H PRN (Reason: shortness of breath or wheezing) Qty: 75 0RF azithromycin 250 mg tablet 250 mg PO DAILY 4 Days Qty: 4 0RF Rx Instructions: start on day 2 of therapy prednisone 20 mg tablet 40 mg PO DAILY Qty: 8 0RF Referrals: [facility] [place] G[facility]enterology Services [Provider Group, Gastroenterology] Referral Note: GERD Stand Alone Forms: Work/School Release Print Language: Yoruba
[2025-07-26 12:30] LABS: MANUAL DIFF FLAG NO
[2025-07-26 12:31] LABS: Hematocrit 43.8 % (42.0-52.0); Hemoglobin 14.9 g/dl (14.0-18.0); Imm Gran Abs Auto 0.03 X10*3/uL (0.00-0.03); Imm Gran Pct Auto 0.4 % (0.0-0.4); Lymphocytes Absolute Auto 2.7 X10*3/uL (1.2-4.9); Mean Corpuscular HGB Conc 34.0 g/dl (31.0-36.0); Mean Corpuscular Hemoglobin 30.0 pg (27.0-33.0); Mean Corpuscular Volume 88.1 fL (80.0-98.0); NRBC Abs Auto 0.000 X10*3/uL (0.0-0.012); NRBC Pct Auto 0.0 /100WBC (0.0-0.2); Platelet Count 296 X10*3/uL (160-400); Red Blood Count 4.97 X10*6/uL (4.60-5.80); White Blood Count 8.0 X10*3/uL (4.8-10.8)
[2025-07-26 12:49] LABS: Alanine Aminotransferase 36 U/L (0-40); Albumin Level 4.6 g/dL (3.5-5.0); Alkaline Phosphatase 81 U/L (39-117); Anion Gap 12 (12-20); Aspartate Amino Transferase 27 U/L (5-37); Blood Urea Nitrogen 9 mg/dL (9-16); Calcium 9.1 mg/dL (8.4-10.2); Carbon Dioxide 25 mmol/L (22-29); Chloride 110 mmol/L (96-108); Creatinine Clr Calc Pharmacy 175.7; Estimated Glomerular Filt Rate > 60; Magnesium 1.8 mg/dL (1.6-2.6); Potassium 3.7 mmol/L (3.3-5.1); Sodium 143 mmol/L (135-145); Total Protein 7.4 g/dL (6.5-8.0)
--- OUTSIDE RECORDS SUMMARY | 2025-07-26 14:34 | XMS_ITS | Clinical Summary ---
Author Organization [employer] Address [address] [facility] [address] [place] [address] Care Team Providers Care [employer] Name Role Phone Unavailable Primary Care Provider Unavailabl e Allergies Active Allergy Reactions Criticality Noted Date Comments Pollen Extract Runny nose Low 04/02/2024 Medications famotidine (Pepcid) 20 MG tabletIndicatio ns:Upper abdominal pain Take 1 tablet (20 mg) by mouth 2 times daily. 60 tablet 11 4 Active simethicone (Simethicone Ultra Strength) 180 MG capsuleIndicati ons:Upper abdominal pain Take 1 capsule (180 mg) by mouth every 8 (eight) hours if needed for flatulence. 90 capsule 4 Active omeprazole OTC (PriLOSEC OTC) 20 MG EC tabletIndicatio ns:H. pylori infection Take 1 tablet (20 mg) by mouth before breakfast and before evening meal for 14 days. Take 1 tablet (20 mg) by mouth for 14 days, then daily for 30 days more. 28 tablet 4 Active Active Problems Problem Noted Date Diagnosed Date Upper abdominal pain 04/02/2024 Assessment & Plan (04/02/2024 10:29 AM EDT): I advise patient to avoid NSAIDs, spicy and acid food, I advise to eat at the same time every day, I advise to elevate the head of the bed and take medications as prescribe Benign headache 04/02/2024 Assessment & Plan (04/02/2024 10:29 AM EDT): Maintain hydration Acetaminophen PRN Other fatigue 04/02/2024 Social History Tobacco Use Types Packs/Day Years Used Date Smoking Tobacco: Never Assessed Tobacco Cessation:Counseling Given: Yes Sex and Gender Information Value Date Recorded Sex Assigned at Male 04/02/2024 8:44 AM EDT Legal Sex Male 8:41 AM EDT Gender Identity Male 04/02/2024 8:44 AM EDT Sexual Orientation Straight 04/02/2024 8: 44 AM EDT Last Filed Vital Signs Vital Sign Reading Time Taken Comments Blood Pressure 122/78 04/02/2024 9:09 AM EDT Pulse 76 04/02/2024 9:09 AM EDT Temperature 36.7 C (98.1 F) 04/02/2024 9:09 AM EDT Respiratory Rate 20 04/02/2024 9:09 AM EDT Oxygen Saturation 100% 04/02/2024 9:09 AM EDT Inhaled Oxygen Concentration - - Weight 86.5 kg (190 lb 12.8 oz) 04/02/2024 9:09 AM EDT Height 175.3 cm (5' 9 ) 04/02/2024 9:09 AM EDT Body Mass Index 28.18 04/02/2024 9:09 AM EDT Plan of Treatment Health Maintenance Due Date Last Done Comments Depression Screening 1997 HIV Screening 1997 SDOH Screening 1997 Disability Screening 1997 Alcohol/Substance Use Screening 2009 Tobacco Screening 2009 Family Planning (PISQ) 2012 HPV Vaccines (1 - Male 3-dos e series) 2012 Hepatitis C Screening 2015 DTaP/Tdap/Td Vaccines (1 - Tdap) 2016 Hepatitis B Vaccines (1 of 3 - 19+ 3-dose series) 2016 COVID-19 Vaccine (1 - 2023-2 5 season) 2025 Influenza Vaccine (#1) 2025 Zoster Vaccines (1 of 2) 2047 RSV Patients and Pa tients Aged 60 years or older (1 - 1-dose 75+ series) 2072 HIB Vaccines Aged Out No longer eligi ble based on patient's age to complete this topic Hepatitis A Vaccines Aged Out No long er eligible based on patient's age to complete this topic IPV Vaccines Aged Out No longer eligi ble based on patient's age to complete this topic Meningococcal B Vaccine Aged Out No l onger eligible based on patient's age to complete this topic Meningococcal Vaccine Aged Out No jerzy nolvia eligible based on patient's age to complete this topic Pneumococcal Vaccine: Pediat rics (0 to 5 Years) and At-Risk Patients (6 to 49) Years Aged Out No longer eligible b ased on patient's age to complete this topic RSV under 20 months Aged Out No longe r eligible based on patient's age to complete this topic Rotavirus Vaccines Aged Out No longer eligible based on patient's age to complete this topic Insurance [facility] C[facility]
[2025-07-26 15:19] LABS: Appearance Urine Clear; Glucose Urine UA Negative (Negative); PH 6.0 (5.0-9.0); Specific Gravity - Urine 1.025 (1.005-1.025)
--- NOTE | 2025-07-26 16:24 | ECG_ITS ---
Test Reason : PAIN Blood Pressure : */* mmHG Vent. Rate : 61 BPM Atrial Rate : 61 BPM P-R Int : 148 ms QRS Dur : 100 ms QT Int : 394 ms P-R-T Axes : 34 14 36 degrees QTcB Int : 396 ms Normal sinus rhythm Normal ECG When compared with ECG of 28-May-2025 16:04, Vent. rate has decreased by 37 bpm Referred By: Dontae Cardenas Electronically Signed By: Don Smith
[2025-07-26 16:34] LABS: Lipase 20 U/L (8-78)
[2025-07-26] MEDS: Lidocaine HCl Viscous 2 % 15 ML SOLUTION MUCOUS MEM (16:40)
[2025-07-26] MEDS: Magnesium Hydrox/Alum Hydrox 30 ML ORAL.SUSP PO (16:40)
[2025-07-26 16:54] VITALS: BP 129/81; PULSE 75; RESP 16; TEMP 36.4; O2SAT 97
== END 2025-07-26 16:59 | disposition home or self-care (01) ==
PROVIDERS: Physician Assistant; Physician Assistant Medical; Emergency Provider Emergency Medicine Emergency Medical Services
DX: R10.13 Epigastric pain (principal); R51.9 Headache, unspecified; K21.9 Gastro-esophageal reflux disease without esophagitis; Z90.49 Acquired absence of other specified parts of digestive tract
CPT/HCPCS: 36415; 80053; 81003; 83690; 83735; 85025; 93005; 99283; 99284

== ENCOUNTER → 2025-07-26 16:24 | Outpatient (BNV) | payer MEDICAID, SELFPAY | PROVIDERS: Emergency Provider Emergency Medicine Emergency Medical Services; Visit Provider Internal Medicine Cardiovascular Disease | DX: R07.9 Chest pain, unspecified (principal) | CPT/HCPCS: 93010 ==